=== PATIENT | female | born 1960 | race Caucasian/White ===

== ENCOUNTER 2018-06-14 19:33 | Emergency (ER) | payer OTHER ==
--- NOTE | 2018-06-14 19:47 | EDPHY ---
H & P Stated Complaint: L foot injury Time Seen by Provider: 06/14/18 19:46 HPI/ROS: Chief Complaint: Left foot injury HPI: The patient presents the ED with complaints of left foot pain. She was walking when she accidentally inverted her foot. She has pain along the lateral aspect of the left foot. She denies any pain in her ankle, knee or hip. She denies acute numbness or weakness. She denies additional acute complaints. REVIEW OF SYSTEMS: Neuro: no headache, numbness, weakness Musculoskeletal: as above Skin: no abrasion or lacerations Source: Patient Exam Limitations: No limitations - Personal History Current Tetanus/Diphtheria Vaccine: Unsure Current Tetanus Diphtheria and Acellular Pertussis (TDAP): Unsure - Medical/Surgical History Hx Asthma: No Hx Chronic Respiratory Disease: No Hx Diabetes: No Hx Cardiac Disease: No Hx Renal Disease: No Hx Cirrhosis: No Hx Alcoholism: No Hx HIV/AIDS: No Hx Splenectomy or Spleen Trauma: No - Social History Smoking Status: Never smoked - Physical Exam Exam: General Appearance: Alert, no distress Skin: No lacerations, No abrasion Extremities: Tenderness to palpation over the base of the 5th metatarsal tarsal head Neurological: Normal motor and sensory function noted in the left foot Constitutional: Initial Vital Signs Temperature (C) 36.9 C 06/14/18 19:35 Heart Rate 82 06/14/18 19:35 Respiratory Rate 16 06/14/18 19:35 Blood Pressure 138/89 H 06/14/18 19:35 O2 Sat (%) 94 06/14/18 19:35 O2 Delivery Mode Room Air Allergies/Adverse Reactions: codeine Allergy (Verified 06/14/18 19:38) Medical Decision Making - Diagnostics Imaging Results: Left foot x-ray: Images reviewed by myself: Nondisplaced fracture involving the base of the 5th metatarsal. ED Course/Re-evaluation: The patient has a nondisplaced fracture involving her left 5th metatarsal base. She is placed Lee boot. The patient is advised to follow up with Orthopedic surgery in [place] when she returns. Differential Diagnosis: Differential diagnosis considered includes fracture, sprain, dislocation Departure - Departure Disposition: Home, Routine, Self-Care Clinical Impression: Fracture of 5th metatarsal Qualifiers: Encounter type: initial encounter Fracture type: closed Fracture alignment: nondisplaced Laterality: left Qualified Code(s): S92.355A - Nondisplaced fracture of fifth metatarsal bone, left foot, initial encounter for closed fracture Condition: Good Instructions: Foot Fracture in Adults (ED) Additional Instructions: 1. You do have a hairline fracture noted in the 5th metatarsal foot bone. This should heal without surgery. Please wear Lee boot for immobilization. I do recommend following up with Orthopedic surgery for a repeat x-ray in the next 1-2 weeks. 2. Take Ibuprofen or Motrin 600 mg by mouth three times a day. 3. Elevate at night
[2018-06-14 21:20] VITALS: BP 152/104
== END 2018-06-14 21:19 | disposition home or self-care (01) ==
DX: S92.355A Nondisplaced fracture of fifth metatarsal bone, left foot, initial encounter for closed fracture (principal); X50.0XXA Overexertion from strenuous movement or load, initial encounter
CPT/HCPCS: L4386